=== PATIENT | male | born 1970 | race Caucasian/White ===

== ENCOUNTER 2020-10-12 21:56 | Emergency (ER) | payer MEDICARE, OTHER ==
[~2020-10-12 21:56] MED LIST: CORTISPORIN OTI10 ML EARBOTH; GLUCOPHAGE500 MG PO; KEFLEX CAP 500500 MG PO
[2020-10-13 01:24] LABS: HEMOGLOBIN 14.2 gm/dl (14.0-17.5); RED BLOOD COUNT 5.03 M/UL (4.20-5.50); WHITE BLOOD COUNT 12.8 K/UL (4.5-11.0)
[2020-10-13 01:40] LABS: BUN/CREATININE RATIO 19 (0-10)
[2020-10-13] MEDS ORDERED: PREDNISONE 20 M20 MG PO (03:15)
== END 2020-10-13 03:24 | disposition home or self-care (01) ==
LOC: ER1 21:56
PROVIDERS: Physician Assistant
DX: M79.89 Other specified soft tissue disorders (principal); R21 Rash and other nonspecific skin eruption; E11.9 Type 2 diabetes mellitus without complications; E78.5 Hyperlipidemia, unspecified
CPT/HCPCS: 80048; 80076; 85025; 99283